=== PATIENT | female | born 1975 | race Caucasian/White ===

== ENCOUNTER → 2020-02-22 | Outpatient (CLI) | payer OTHER ==
--- NOTE | 2020-02-22 11:31 | Diagnostic Imaging Report ---
INDICATION: Right knee pain for two months. TIME OF EXAM: 11:16 a.m. FINDINGS: Three views of the right knee were obtained. Alignment is normal. Mild medial compartmental joint space narrowing is noted. Articular surfaces are smooth. No fracture, dislocation or effusion is seen. IMPRESSION: Mild medial compartmental joint space narrowing. The study is otherwise unremarkable. Dictated by: Dictated on workstation # [id number]
== END ==
LOC: RAD FS 11:08
PROVIDERS: ATTEND Nurse Practitioner
DX: M25.861 Other specified joint disorders, right knee (principal)
CPT/HCPCS: 73562